=== PATIENT | male | born 1965 | race Caucasian/White ===

== ENCOUNTER → 2021-02-26 | Outpatient (CLI) | payer OTHER ==
--- NOTE | 2021-02-27 02:36 | MR ---
EXAMINATION TYPE: MR lumbar spine wo con DATE OF EXAM: 02/26/2021 COMPARISON: None HISTORY: Low back pain down left leg for 15 years. Multiplanar multiecho imaging of the lumbar spine was performed without contrast. Vertebra have normal alignment. Disc spaces are fairly normal. There is small posterior disc bulging at L5-S1. Lumbar nerve roots appear normal. There is no spinal stenosis. Neural foramina appear fairl y well-maintained. 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 There is no lumbar paraspinal mass. T here is no compression fracture. IMPRESSION: Small posterior L5-S1 disc bulge. No spinal stenosis. No fracture.
== END | disposition home or self-care (01) ==
LOC: RADMRIMAIN 20:16
PROVIDERS: ATTEND Orthopaedic Surgery
DX: M51.27 Other intervertebral disc displacement, lumbosacral region (principal)
CPT/HCPCS: 72148